=== PATIENT | female | born 1960 | race Caucasian/White ===

== ENCOUNTER 2018-07-25 05:45 | Day surgery (SDC) | payer OTHER ==
[2018-07-25] MEDS ORDERED: FENTAnyl 50 MCG/ML VIAL (07:58)
[2018-07-25] MEDS ORDERED: MIDAZOLAM 1 MG/ML 2 ML INJ ×2 (07:58)
== END 2018-07-25 09:49 | disposition home or self-care (01) ==
LOC: GIL 05:45
DX: K29.30 Chronic superficial gastritis without bleeding (principal); K31.7 Polyp of stomach and duodenum; R13.10 Dysphagia, unspecified; Z80.0 Family history of malignant neoplasm of digestive organs
CPT/HCPCS: 43239; 88305; 88312